=== PATIENT | male | born 1985 | race Caucasian/White ===

== ENCOUNTER 2024-07-17 21:31 | Emergency (ER) | payer OTHER, SELFPAY ==
[2024-07-17] MEDS ORDERED: Orphenadrine Citrate 100 MG ER.TAB ONE (23:46)
[2024-07-17] MEDS ORDERED: HYDROcodone/Acetaminophen 5/325 mg Tablet ONE (23:46)
[2024-07-17] MEDS ORDERED: Boostrix 0.5 ML (Tdap) VIAL (>/=7 yrs of age) ONE (23:47)
== END 2024-07-18 00:40 | disposition home or self-care (01) ==
LOC: ERS 21:31
DX: S01.81XA Laceration without foreign body of other part of head, initial encounter (principal); V89.2XXA Person injured in unspecified motor-vehicle accident, traffic, initial encounter
CPT/HCPCS: 12011; 70450; 70486; 72125; 90471; 90715